=== PATIENT | male | born 1945 | race Caucasian/White ===

== ENCOUNTER 2020-08-02 16:06 | Emergency (ER) | payer OTHER ==
[~2020-08-02] VITALS: Ht 177.8 cm; Wt 117.0 kg
[2020-08-02 18:49] VITALS: BP 118/74
== END 2020-08-02 18:49 | disposition home or self-care (01) ==
LOC: ER 16:06
DX: S20.229A Contusion of unspecified back wall of thorax, initial encounter (principal); R05 Cough; E11.9 Type 2 diabetes mellitus without complications; E66.9 Obesity, unspecified; Z68.37 Body mass index [BMI] 37.0-37.9, adult; Z98.890 Other specified postprocedural states; Z88.5 Allergy status to narcotic agent; Z87.891 Personal history of nicotine dependence; W18.39XA Other fall on same level, initial encounter; Y93.01 Activity, walking, marching and hiking; Y92.098 Other place in other non-institutional residence as the place of occurrence of the external cause; Y99.8 Other external cause status